=== PATIENT | male | born 1955 | race Caucasian/White ===

== ENCOUNTER 2017-01-29 08:10 | Outpatient (CLI) | payer OTHER | END 2017-01-29 08:11 | disposition home or self-care (01) | DX: R31.9 Hematuria, unspecified (principal) ==

== ENCOUNTER 2017-01-29 08:56 | Outpatient (CLI) | payer OTHER | END 2017-01-29 08:57 | disposition home or self-care (01) | DX: E78.2 Mixed hyperlipidemia (principal); R73.09 Other abnormal glucose; Z12.5 Encounter for screening for malignant neoplasm of prostate; Z72.89 Other problems related to lifestyle ==

== ENCOUNTER 2017-03-05 07:00 | Outpatient (CLI) | payer OTHER ==
--- NOTE | 2017-03-05 11:08 | CARDIAC PROCEDURE NOTE ---
DATE OF SERVICE: 03/05/2017 00:00:00 PROCEDURE: Schuyler protocol treadmill for echocardiographic imaging. INDICATIONS: A 61-year-old male with recent exertional chest heaviness and cardiac risks consisting p rimarily of a former smoking history. PROCEDURE: The patient was exercised in the standard fashion on the Schuyler protocol for less than 6 mi nutes. Early in stage II, he developed the onset of tightness across his anterior chest reproducing h is presenting symptoms. He began to falter a bit on the treadmill and was taken immediately off for i maging. During this time he developed significant ST depressions in the inferolateral leads. It took nearly 20 minutes of recovery before these returned to normal. The discomfort resolved within 5 minut es of stopping the procedure. He had a few PACs. There were no ventricular ectopics. There were no co mplex dysrhythmias. His blood pressure response was normal with his maximum systolic pressure of abou t 160. IMPRESSION: This is a very abnormal treadmill. He did not drop his pressure, but started to stagger a nd had ST segment depressions in large portions of his electrocardiogram. This could represent 3-vess el disease or at least a right dominant lesion. PLAN: The patient has been placed on restricted activities. He is not to do any manual labor or to li ft over 5 pounds. He is to start Plavix 75 mg daily (he is quite INTOLERANT TO ASPIRIN). His baseline pulse is in the upper 50s to low 60s, so he is placed on a low dose metoprolol SR of 25 mg a day. He is also given a prescription for nitroglycerin sublingually with appropriate instructions. If he has to take 3 right in a row, he will be calling 911. These instructions were given to him and his signi ficant other. Arrangements will be made for him to be seen by Cardiology within 1 week. JOB #: [id number] EXT JOB #:[id number]
[2017-03-05 15:41] VITALS: BP 110/72
== END 2017-03-05 07:01 | disposition home or self-care (01) ==
LOC: DI 07:00
PROVIDERS: ATTEND Internal Medicine
DX: R07.9 Chest pain, unspecified (principal); R94.39 Abnormal result of other cardiovascular function study; Z87.891 Personal history of nicotine dependence
CPT/HCPCS: 93350

== ENCOUNTER 2017-04-06 21:42 | Emergency (ER) | payer OTHER ==
[2017-04-06] MEDS ORDERED: HYDROmorphone 1 MG/ML SYRINGE IVP STA ×2 (23:01→23:44)
[2017-04-06] MEDS ORDERED: KETOROLAC 60 MG/2 ML VIAL IVP STA (23:01)
[2017-04-06] MEDS ORDERED: KETOROLAC 30 MG/ML VIAL ONE (23:02)
[2017-04-06] MEDS ORDERED: HYDROmorphone 1 MG/ML SYRINGE ONE ×2 (23:02→23:43)
[2017-04-06 23:18] LABS: BASOPHILS # (AUTO) 0.1 10^3/uL (0.0-0.1); BASOPHILS % (AUTO) 2.2 %; EOSINOPHILS # (AUTO) 0.7 10^3/uL (0.0-0.7); EOSINOPHILS % (AUTO) 10.4 %; HGB - HEMOGLOBIN 10.1 g/dL (14.0-18.0); LYMPHOCYTES # (AUTO) 1.5 10^3/uL (1.5-3.5); LYMPHOCYTES % (AUTO) 23.1 %; MEAN CORPUSCULAR HEMOGLOBIN 31.8 pg (27.0-31.0); MEAN CORPUSCULAR HGB CONC 34.9 g/dL (32.0-36.0); MEAN CORPUSCULAR VOLUME 91.1 fL (80.0-94.0); MEAN PLATELET VOLUME 6.4 fL (7.4-11.4); MONOCYTES # (AUTO) 0.5 10^3/uL (0.0-1.0); NEUTROPHILS # (AUTO) 3.7 10^3/uL (1.5-6.6); NEUTROPHILS % (AUTO) 56.3 %; RED BLOOD COUNT 3.18 10^6/uL (4.70-6.10); RED CELL DISTRIBUTION WIDTH 14.1 % (12.0-15.0); UNCORRECTED WHITE BLOOD COUNT 6.6 x10^3/uL; WHITE BLOOD COUNT 6.6 x10^3/uL (4.8-10.8)
[2017-04-06 23:35] LABS: BILIRUBIN,TOTAL 0.5 mg/dL (0.2-1.0); CALCIUM 8.6 mg/dL (8.5-10.3); CREATININE 0.9 mg/dL (0.6-1.2); MAGNESIUM 2.1 mg/dL (1.7-2.8); POTASSIUM 3.7 mmol/L (3.5-5.0); TOTAL PROTEIN 6.3 g/dL (6.7-8.2)
--- NOTE | 2017-04-06 23:38 | XRAY Preliminary Report ---
Exam: XR Chest 2 View PA/LAT IMPRESSION: Mild bibasilar opacities, probably atelectasis plus or minus small left effusion. [facility] SITE ID: [id number]
--- NOTE | 2017-04-06 23:41 | XRAY Report ---
EXAM: CHEST RADIOGRAPHY EXAM DATE: 04/06/2017 11:30 PM. CLINICAL HISTORY: Right chest pain; post op CABG. COMPARISON: 09/25/2016. TECHNIQUE: 2 views. FINDINGS: Lungs/Pleura: Mild bibasilar probable atelectasis. No gross pneumothorax or large effusion. There cou ld be a small left effusion. Chronic biapical pleural thickening. Mediastinum: Heart and mediastinal contours are unremarkable. Other: Post interval median sternotomy. IMPRESSION: Mild bibasilar opacities, probably atelectasis plus or minus small left effusion. [facility] Referring Provider Line: [phone] SITE ID: [id number]
--- NOTE | 2017-04-07 00:17 | ED Physician Documentation ---
PD HPI CHEST PAIN - Stated complaint Stated Complaint: CHEST PX/POSTOP - Chief complaint Chief Complaint: Cardiac - History obtained from History obtained from: Patient, Family - History of Present Illness Timing - onset: How many weeks ago (had CABG 3 vessel in [place] 04/14/17 with good healing so far. Has been trying to be more active so has increased walkiing. Had walked about 2 miles today and felt okay. When back resting, noted onset of a sharp pain in right chest, feels like "stabbing". Hurts more with moving right arm and with deep breathing. No cough, fever. No redness nor drainage at sternal incision.) Timing - onset during: Light activity (pulling at [employer] chair handle) Timing - details: Abrupt onset, Still present Quality: Aching, Sharp, Pain. No: Pressure, Tightness Location: Right chest Radiation: Back Improved by: Rest Worsened by: Inspiration, Movement (of right arm/shoulder) Associated symptoms: No: Shortness of air, Nausea, Vomiting, Feeling faint / dizzy, Palpitations, Cough Recently seen: Surgery Review of Systems Constitutional: denies: Fever, Chills Nose: denies: Rhinorrhea / runny nose, Congestion Throat: denies: Sore throat Cardiac: denies: Chest pain / pressure, Palpitations, Pedal edema, Calf pain Respiratory: denies: Dyspnea, Cough, Wheezing GI: denies: Abdominal Pain, Nausea, Vomiting, Diarrhea Neurologic: denies: Near syncope PD PAST MEDICAL HISTORY - Past Medical History Cardiovascular: None Respiratory: Other Endocrine/Autoimmune: None GI: GERD, Ulcers, Cholelithiasis : None Psych: None Musculoskeletal: Chronic back pain Derm: None - Past Surgical History Past Surgical History: Yes General: Other HEENT: Tonsil/Adenoidectomy - Present Medications Home Medications: Ambulatory Orders Medication Instructions Recorded Confirmed Amiodarone HCl 200 mg PO DAILY 04/06/17 04/06/17 Aspirin Chewable [[place] 81 mg PO DAILY 04/06/17 04/06/17 Aspirin] Atorvastatin Calcium 40 mg PO DAILY 04/06/17 04/06/17 Docusate Sodium 100 mg PO DAILY 04/06/17 04/06/17 Furosemide 40 mg PO DAILY 04/06/17 04/06/17 Metoprolol Tartrate 25 mg PO DAILY 04/06/17 04/06/17 Pantoprazole Sodium 40 mg PO DAILY 04/06/17 04/06/17 Potassium Chloride [Micro-K] 10 meq PO DAILY 04/06/17 04/06/17 Tamsulosin [Flomax] 0.4 mg PO DAILY 04/06/17 04/06/17 oxyCODONE [Roxicodone] 5 mg PO Q6HR 04/06/17 04/06/17 HYDROmorphone [Dilaudid] 2 mg PO Q4H PRN #20 tablet 04/07/17 Naproxen [Naprosyn] 500 mg PO BID #20 tablet 04/07/17 - Allergies Allergies/Adverse Reactions: Allergies Allergy/AdvReac Type Severity Reaction Status Date / Time No Known Drug Allergies Allergy Verified 03/13/13 11:53 - Social History Does the pt smoke?: Yes Does the pt drink ETOH?: Yes Does the pt have substance abuse?: No - Immunizations Immunizations are current?: No PD ED PE NORMAL - Vitals Vital signs reviewed: Yes - General General: Alert and oriented X 3, Well developed/nourished, Other (appears in pain with movement of arm and deep breathing. Pain localized to right parasternal area about level 6th rib. No rash nor sores seen. No redness nor pimples on sternum. Lungs clear bilaterally. ) - HEENT HEENT: Atraumatic, PERRL, Pharynx benign - Neck Neck: Supple, no meningeal sign, No adenopathy - Cardiac Cardiac: RRR, No murmur - Respiratory Respiratory: Clear bilaterally - Abdomen Abdomen: Normal bowel sounds, Soft, Non distended, No organomegaly, Other (mild tender at prior drain site, but appears healing okay without signs of infection. ) - Male Male : Deferred - Rectal Rectal: Deferred - Derm Derm: Normal color, Warm and dry - Extremities Extremities: No tenderness to palpate, Normal ROM s pain, No edema, No calf tenderness / cord - Neuro Neuro: Alert and oriented X 3, No motor deficit, Normal speech Results - Vitals Vitals: Vital Signs - 24 hr 04/06/17 04/06/17 04/07/17 21:48 23:29 00:38 Temperature 36.7 C Heart Rate 73 68 66 Respiratory 16 16 16 Rate Blood Pressure 134/66 H 121/58 L 114/67 O2 Saturation 95 99 99 Oxygen O2 Source Room air - Labs Labs: Laboratory Tests 04/06/17 04/06/17 23:10 23:10 WBC 6.6 RBC 3.18 L Hgb 10.1 L Hct 29.0 L MCV 91.1 MCH 31.8 H MCHC 34.9 RDW 14.1 Plt Count 260 MPV 6.4 L Neut # 3.7 Lymph # 1.5 [facility] # 0.5 Eos # 0.7 Baso # 0.1 Absolute Nucleated RBC 0.00 Nucleated RBCs 0.0 Sodium 138 Potassium 3.7 Chloride 106 Carbon Dioxide 28 Anion Gap 4.0 L BUN 14 Creatinine 0.9 Estimated GFR (MDRD) 86 L Glucose 159 H Calcium 8.6 Magnesium 2.1 Total Bilirubin 0.5 AST 15 ALT 15 Alkaline Phosphatase 94 Total Protein 6.3 L Albumin 3.2 Globulin 3.1 Albumin/Globulin Ratio 1.0 Lipase 19 L - Rads (name of study) chest Radiology: Prelim report reviewed, EMP read contemporaneously (no PTX. minimal left effusion, none on right. Wires intact without broken wire. Mild bibasilar atelectasis. NO infiltrates. ) PD MEDICAL DECISION MAKING - ED course Complexity details: d/w PMD, d/w account consultant (CT surgery, Dr. Willis - to add NSAID and increase oral meds to Dilaudid short term. Reviewed lab and CXR findings with her. No acute process seen. ) Departure - Departure Disposition: 01 Home, Self Care Clinical Impression: Postsurgical aortocoronary bypass status Chest pain Qualifiers: Chest pain type: unspecified Qualified Code(s): R07.9 - Chest pain, unspecified Condition: Stable Record reviewed to determine appropriate education?: Yes Instructions: ED Chest Pain Pleurisy Follow-Up: Asad Watson MD [Primary Care Provider] - Hilario Romero MD [Provider Admit Priv/Credential] - Prescriptions: HYDROmorphone [Dilaudid] 2 mg PO Q4H PRN #20 tablet PRN Reason: Pain Naproxen [Naprosyn] 500 mg PO BID #20 tablet Comments: Continue current medications. Change pain med from the current oxycodone to oral hydromorphone and see if it works better. Add Naproxen twice daily. Recheck if not improving well over the next 2-3 days, sooner if other symptoms develop. Discharge Date/Time: 04/07/17 00:38
[2017-04-07] MEDS ORDERED: HYDROmorphone 2 MG TABLET PO STA (00:30)
[2017-04-07] MEDS ORDERED: HYDROmorphone 2 MG TABLET ONE (00:31)
[2017-04-07 00:39] VITALS: BP 114/67
== END 2017-04-07 00:38 | disposition home or self-care (01) ==
LOC: ED 21:42
DX: R07.2 Precordial pain (principal); Z95.1 Presence of aortocoronary bypass graft; I25.10 Atherosclerotic heart disease of native coronary artery without angina pectoris; K21.9 Gastro-esophageal reflux disease without esophagitis; Z87.11 Personal history of peptic ulcer disease; Z87.09 Personal history of other diseases of the respiratory system; Z79.82 Long term (current) use of aspirin; F17.200 Nicotine dependence, unspecified, uncomplicated
CPT/HCPCS: 36415; 71020; 71275; 80053; 83690; 83735; 84484; 85025; 85610; 93005; 96374; 96375; 96376; 99283; 99284; 99285; A9270; J1170; Q9967

== ENCOUNTER 2017-04-07 18:21 | Emergency (ER) | payer OTHER ==
[2017-04-07] MEDS ORDERED: MORPHINE 10 MG/ML VIAL IVP ONE (18:40)
--- NOTE | 2017-04-07 18:42 | ED Physician Documentation ---
History of Present Illness - Stated complaint Stated Complaint: R CHEST PAIN - Chief complaint Chief Complaint: General - History obtained from History obtained from: Patient, Family - History of Present Illness Timing: Other (He had a three-vessel coronary bypass by Dr. Watson in [place] in the middle of March. It was complicated by hemothorax necessitating tube thoracostomy. He was discharged though in good condition was improving well until 2 nights ago when he had a sudden pop with severe pain in the right chest while walking. He has been somewhat short of breath and in severe pain ever since which is worse if he moves his arms or takes a deep breath. He was seen here last night and workup was negative. It continues and pain is severe. He denies calf pain or swelling.) Review of Systems Ten Systems: 10 systems reviewed and negative Constitutional: denies: Fever, Chills Throat: denies: Dental pain / toothache, Sore throat Cardiac: reports: Chest pain / pressure. denies: Palpitations, Pedal edema, Calf pain Respiratory: reports: Dyspnea. denies: Cough, Hemoptysis, Wheezing PD PAST MEDICAL HISTORY - Past Medical History Cardiovascular: None Respiratory: Other Endocrine/Autoimmune: None GI: GERD, Ulcers, Cholelithiasis : None Psych: None Musculoskeletal: Chronic back pain Derm: None Other Past Medical History: pneumothorax - Past Surgical History Past Surgical History: Yes General: Other HEENT: Tonsil/Adenoidectomy - Present Medications Home Medications: Ambulatory Orders Medication Instructions Recorded Confirmed Amiodarone HCl 200 mg PO DAILY 04/06/17 04/07/17 Aspirin Chewable [[place] 81 mg PO DAILY 04/06/17 04/07/17 Aspirin] Atorvastatin Calcium 40 mg PO DAILY 04/06/17 04/07/17 Docusate Sodium 100 mg PO DAILY 04/06/17 04/07/17 Metoprolol Tartrate 25 mg PO DAILY 04/06/17 04/07/17 Pantoprazole Sodium 40 mg PO DAILY 04/06/17 04/07/17 Potassium Chloride [Micro-K] 10 meq PO DAILY 04/06/17 04/07/17 Tamsulosin [Flomax] 0.4 mg PO DAILY 04/06/17 04/07/17 oxyCODONE [Roxicodone] 5 mg PO Q6HR 04/06/17 04/07/17 HYDROmorphone [Dilaudid] 2 mg PO Q4H PRN #20 tablet 04/07/17 04/07/17 Naproxen [Naprosyn] 500 mg PO BID #20 tablet 04/07/17 04/07/17 Oxycodone HCl/Acetaminophen 1 each PO Q4H PRN #20 tablet 04/07/17 [Percocet 10-325 mg Tablet] - Allergies Allergies/Adverse Reactions: Allergies Allergy/AdvReac Type Severity Reaction Status Date / Time No Known Drug Allergies Allergy Verified 03/13/13 11:53 - Social History Does the pt smoke?: Yes Does the pt drink ETOH?: Yes Does the pt have substance abuse?: No - Family History Family history: reports: Non contributory - Immunizations Immunizations are current?: No PD ED PE NORMAL - Vitals Vital signs reviewed: Yes - General General: Alert and oriented X 3, Other (Appears uncomfortable) - HEENT HEENT: PERRL, EOMI - Neck Neck: Supple, no meningeal sign, No bony TTP - Cardiac Cardiac: RRR, No murmur - Respiratory Respiratory: Other (Splinting his breaths with mild rhonchi throughout) - Abdomen Abdomen: Soft, Non tender - Back Back: No CVA TTP, No spinal TTP - Derm Derm: Normal color, Warm and dry - Extremities Extremities: No edema, No calf tenderness / cord - Neuro Neuro: Alert and oriented X 3, Normal speech - Psych Psych: Normal mood, Normal affect Results - Vitals Vitals: Vital Signs - 24 hr 04/07/17 04/07/17 18:24 19:51 Temperature 36.0 C L Heart Rate 69 66 Respiratory 18 18 Rate Blood Pressure 121/74 114/69 O2 Saturation 96 96 Oxygen O2 Source Room air - EKG (time done) 1844 Rate: Rate (enter#) (68) Rhythm: NSR [place]: Normal Intervals: Normal [place] QRS: Normal Ischemia: Normal ST segments Computer interpretation: Agree with computer - Labs Labs: Laboratory Tests 04/07/17 04/07/17 04/07/17 18:43 18:43 18:43 WBC 6.8 RBC 3.57 L Hgb 11.0 L Hct 33.2 L MCV 92.8 MCH 30.8 MCHC 33.2 RDW 14.2 Plt Count 297 MPV 6.7 L Neut # 3.3 Lymph # 2.0 [place] # 0.6 Eos # 0.8 H Baso # 0.1 Absolute Nucleated RBC 0.01 Nucleated RBCs 0.1 PT 14.8 H INR 1.3 H Sodium 138 Potassium 4.2 Chloride 103 Carbon Dioxide 28 Anion Gap 7.0 BUN 16 Creatinine 1.1 Estimated GFR (MDRD) 68 L Glucose 113 H Calcium 8.8 Total Bilirubin 0.6 AST 13 ALT 14 Alkaline Phosphatase 109 Troponin I Total Protein 6.9 Albumin 3.5 Globulin 3.4 Albumin/Globulin Ratio 1.0 Lipase 18 L 04/07/17 18:43 WBC RBC Hgb Hct MCV MCH MCHC RDW Plt Count MPV Neut # Lymph # [place] # Eos # Baso # Absolute Nucleated RBC Nucleated RBCs PT INR Sodium Potassium Chloride Carbon Dioxide Anion Gap BUN Creatinine Estimated GFR (MDRD) Glucose Calcium Total Bilirubin AST ALT Alkaline Phosphatase Troponin I < 0.04 Total Protein Albumin Globulin Albumin/Globulin Ratio Lipase - Rads (name of study) Ct Angio chest Radiology: EMP read contemporaneously (No PE, recent sternomoty small restrosternal hematoma with gas. Emphysems and 7mm RML pulm nodule.) PD MEDICAL DECISION MAKING - ED course ED course: 61-year-old gentleman presents with pleuritic chest pain starting a few days after mediastinal drain removal and a few weeks after coronary bypass. Pain is pretty severe. CT was pursued to assess for PE which was negative. Case discussed with his cardiothoracic surgeon, Dr. Watson who felt that the mediastinal gas was probably appropriate at this time course given there is no evidence of infection, his sternotomy incision looks fine. Patient was reassured by this. Discussed pulmonary nodule and need for follow-up for same. Departure - Departure Disposition: 01 Home, Self Care Clinical Impression: Postsurgical aortocoronary bypass status Chest pain Qualifiers: Chest pain type: precordial pain Qualified Code(s): R07.2 - Precordial pain Condition: Good Record reviewed to determine appropriate education?: Yes Instructions: ED Chest Pain Pleurisy Prescriptions: Oxycodone HCl/Acetaminophen [Percocet 10-325 mg Tablet] 1 each PO Q4H PRN #20 tablet PRN Reason: Pain Comments: You do have a 7 mm right middle lobe pulmonary nodule for which you will need a follow-up chest CT in 3-6 months to make sure it is not growing. Discuss this with Dr Romero See Dr Watson in 3-5 days if not fracture.
[2017-04-07 18:47] LABS: BASOPHILS # (AUTO) 0.1 10^3/uL (0.0-0.1); BASOPHILS % (AUTO) 2.1 %; EOSINOPHILS # (AUTO) 0.8 10^3/uL (0.0-0.7); EOSINOPHILS % (AUTO) 11.9 %; HCT - HEMATOCRIT 33.2 % (42.0-52.0); LYMPHOCYTES % (AUTO) 28.6 %; MEAN CORPUSCULAR HEMOGLOBIN 30.8 pg (27.0-31.0); MEAN CORPUSCULAR HGB CONC 33.2 g/dL (32.0-36.0); MEAN CORPUSCULAR VOLUME 92.8 fL (80.0-94.0); MEAN PLATELET VOLUME 6.7 fL (7.4-11.4); MONOCYTES # (AUTO) 0.6 10^3/uL (0.0-1.0); NEUTROPHILS # (AUTO) 3.3 10^3/uL (1.5-6.6); NEUTROPHILS % (AUTO) 48.4 %; NUCLEATED RED BLOOD CELLS AUTO 0.1 /100WBC; RED BLOOD COUNT 3.57 10^6/uL (4.70-6.10); RED CELL DISTRIBUTION WIDTH 14.2 % (12.0-15.0); UNCORRECTED WHITE BLOOD COUNT 6.8 x10^3/uL; WHITE BLOOD COUNT 6.8 x10^3/uL (4.8-10.8)
[2017-04-07] MEDS ORDERED: MORPHINE 10 MG/ML VIAL ONE (18:49)
[2017-04-07 18:54] LABS: INR 1.3 (0.8-1.2); PT - PROTHROMBIN TIME 14.8 secs (9.9-12.6)
[2017-04-07 18:59] LABS: BILIRUBIN,TOTAL 0.6 mg/dL (0.2-1.0); CALCIUM 8.8 mg/dL (8.5-10.3); CREATININE 1.1 mg/dL (0.6-1.2); POTASSIUM 4.2 mmol/L (3.5-5.0); TOTAL PROTEIN 6.9 g/dL (6.7-8.2)
[2017-04-07] MEDS ORDERED: IOPAMIDOL-300 100 ML VIAL IVP ONE (19:34)
[2017-04-07] MEDS ORDERED: MORPHINE 2 MG/ML SYRINGE IVP STA (19:42)
[2017-04-07] MEDS ORDERED: MORPHINE 2 MG/ML SYRINGE ONE (19:42)
--- NOTE | 2017-04-07 19:50 | CT Preliminary Report ---
Exam: CT Chest Angio (PE) IMPRESSION: No evidence of pulmonary embolus. Recent sternotomy, with a small retrosternal hematoma with residual gas. Emphysema. 7 mm right middle lobe pulmonary nodule. Follow-up chest CT in 3-6 months is recommended f or this high risk patient. Left effusion and basilar atelectasis. [facility] SITE ID: [id number]
--- NOTE | 2017-04-07 19:52 | CT Report ---
EXAM: CT ANGIOGRAM CHEST EXAM DATE: 04/07/2017 07:35 PM. CLINICAL HISTORY: Postsurgical chest pain. Open heart surgery 03/15/2017. COMPARISON: Chest x-ray 04/06/2017. TECHNIQUE: Routine helical imaging was performed through the chest in the pulmonary arterial phase. I V Contrast: 100 mL Isovue 300. Reconstructions: Coronal and sagittal 3-D MIP reconstructions.Sagittal and coronal. In accordance with CT protocol optimization, one or more of the following dose reduction techniques w ere utilized for this exam: automated exposure control, adjustment of mA and/or KV based on patient s ize, or use of iterative reconstructive technique. FINDINGS: Pulmonary Arteries: Diagnostic quality: Adequate through the segmental arteries. No evidence for acute or chronic pulmona ry emboli. RV/LV is within normal limits. There is no interventricular septal bowing. There is no reflux of cont rast material in the IVC. Lungs/Pleura: Emphysema. Left effusion with basilar atelectasis. A 7 mm nodule in the lateral right m iddle lobe. (See axial image 108). Mediastinum: Postoperative changes of recent cardiac surgery, with a small anterior mediastinal hemat tomi, with residual gas. No mediastinal adenopathy. Thoracic Aorta: Unremarkable. Upper Abdomen: Cholelithiasis. Other: None. IMPRESSION: No evidence of pulmonary embolus. Recent sternotomy, with a small retrosternal hematoma with residual gas. Emphysema. 7 mm right middle lobe pulmonary nodule. Follow-up chest CT in 3-6 months is recommended f or this high risk patient. Left effusion and basilar atelectasis. [facility] Referring Provider Line: [phone] SITE ID: [id number]
[2017-04-07] MEDS ORDERED: KETOROLAC 60 MG/2 ML VIAL IVP STA (20:18)
[2017-04-07] MEDS ORDERED: KETOROLAC 30 MG/ML VIAL ONE (20:23)
[2017-04-07 20:34] VITALS: BP 111/72
== END 2017-04-07 20:34 | disposition home or self-care (01) ==
LOC: ED 18:21
DX: R07.2 Precordial pain (principal); Z95.1 Presence of aortocoronary bypass graft; I25.10 Atherosclerotic heart disease of native coronary artery without angina pectoris; K21.9 Gastro-esophageal reflux disease without esophagitis; Z87.11 Personal history of peptic ulcer disease; Z87.09 Personal history of other diseases of the respiratory system; Z79.82 Long term (current) use of aspirin; F17.200 Nicotine dependence, unspecified, uncomplicated
CPT/HCPCS: 36415; 71275; 80053; 83690; 84484; 85025; 85610; 93005; 99283

== ENCOUNTER 2017-07-07 06:51 | Outpatient (CLI) | payer OTHER ==
[2017-07-07] MEDS ORDERED: IOPAMIDOL-300 100 ML VIAL ONE (07:18)
[2017-07-07 07:24] LABS: CREATININE 0.9 mg/dL (0.6-1.2)
[2017-07-07] MEDS ORDERED: IOPAMIDOL-300 100 ML VIAL IVP ONE ×2 (07:44)
--- NOTE | 2017-07-07 15:48 | CT Report ---
EXAM: CT CHEST WITHOUT AND WITH CONTRAST EXAM DATE: 07/07/2017 07:52 AM. CLINICAL HISTORY: Reassessment of 61-year-old male with history of cardiac disease with right pulmona ry nodule. COMPARISONS: Similar prior study of 04/07/2017 two-view chest of 04/06/2017 and previous.. TECHNIQUE: Routine helical CT imaging was performed through the chest without and with contrast. IV c ontrast: 80 mL of Isovue-300. Reconstructions: Coronal and sagittal MPR and 3-D MIP. In accordance with CT protocol optimization, one or more of the following dose reduction techniques w ere utilized for this exam: automated exposure control, adjustment of mA and/or KV based on patient s ize, or use of iterative reconstructive technique. FINDINGS: Lungs/Pleura: Stable 6-7 mm right middle lobe pulmonary nodule, noncalcified, on scan 4-45. No additi onal pulmonary nodules or masses. Infiltrates/edema both lung bases seen previously resolved. No new infiltrates or effusions. No pneumothorax. Mild fibrolinear scarring left lung base. Mediastinum: Normal. No adenopathy or masses. The heart and great vessels are normal. No pulmonary va scular congestion. Postsurgical changes of CABG, as previously. Bones: Previous median sternotomy, as previously. Intact median sternotomy wires. Visualized Abdomen: Cholelithiasis, as previously. No gallbladder wall thickening or dilated bile yvette ts. Remainder of visualized upper abdomen unremarkable. Other: None. IMPRESSION: Interval resolution of bibasilar infiltrates/edema and pleural effusions since prior stud y. No acute cardiopulmonary process currently. Stable 67 millimeter round noncalcified nodule right middle lobe. No additional pulmonary nodules or masses. Noncontrast chest CT neck recommended for follow-up in 1824 months per [employer] of Thoraci c Radiology Guidelines. Cholelithiasis, as noted previously. No gallbladder wall thickening or dilated bile ducts. [facility] Referring Provider Line: [phone] SITE ID: [id number]
== END 2017-07-07 06:52 | disposition home or self-care (01) ==
LOC: LAB 06:51
PROVIDERS: ATTEND Internal Medicine
DX: R91.1 Solitary pulmonary nodule (principal)
CPT/HCPCS: 36415; 71270; 82565; Q9967

== ENCOUNTER 2017-08-31 11:33 | Outpatient (CLI) | payer OTHER ==
--- NOTE | 2017-08-31 14:12 | XRAY Report ---
LEFT RIBS: 08/31/2017 CLINICAL INDICATION: Pain. FINDINGS: Frontal and oblique views of the left ribs were obtained. No displaced rib fracture is jaleesa ntified. Minimal basilar atelectasis is seen. No pneumothorax. Postoperative changes of cardiac surge ry are present. IMPRESSION: NO EVIDENCE OF AN ACUTE DISPLACED LEFT RIB FRACTURE. POSTOPERATIVE CHANGES OF CARDIAC DYSON RGERY. JOB #: [id number] EXT JOB #:[id number]
== END 2017-08-31 11:34 | disposition home or self-care (01) ==
LOC: DI 11:33
PROVIDERS: ATTEND Internal Medicine
DX: R07.81 Pleurodynia (principal)

== ENCOUNTER 2017-12-26 09:38 | Outpatient (CLI) | payer OTHER ==
--- NOTE | 2017-12-26 12:41 | XRAY Report ---
THREE VIEW LEFT MIDDLE FINGER: 12/26/2017 CLINICAL INDICATION: Pain. FINDINGS: AP, lateral, oblique views of the left middle finger demonstrate no evidence of fracture or dislocation. The joint spaces are preserved. No foreign body is seen in the soft tissues. IMPRESSION: NO EVIDENCE OF FRACTURE. TD: 12/26/2017 12:40
== END 2017-12-26 09:39 | disposition home or self-care (01) ==
LOC: DI 09:38
PROVIDERS: ATTEND Nurse Practitioner Primary Care
DX: M79.645 Pain in left finger(s) (principal)
CPT/HCPCS: 73140

== ENCOUNTER 2018-01-08 10:49 | Outpatient (CLI) | payer OTHER ==
--- NOTE | 2018-01-08 11:56 | CT Report ---
CT BRAIN WITHOUT CONTRAST: 01/08/2018 CLINICAL INDICATION: Dizziness, vertigo, sudden onset nausea. TECHNIQUE: Axial CT images of the brain were obtained without intravenous contrast. COMPARISON: No previous CT is available for comparison. FINDINGS: The ventricles and sulci are normal in size, shape and configuration. The basilar cisterns are patent. There is no evidence of hemorrhage, mass effect, or midline shift. The visualized orbital contents and paranasal sinuses are unremarkable. The mastoid air cells are normally pneumatized. IMPRESSION: NORMAL CT OF THE BRAIN WITHOUT CONTRAST. CT DOSE REDUCTION STATEMENT In accordance with CT protocol optimization, one or more of the following dose reduction techniques were utilized for this exam: automated exposure control, adjustment of mA and/or KV based on patient size, or use of iterative reconstructive technique. TD: 01/08/2018 11:54
== END 2018-01-08 10:50 | disposition home or self-care (01) ==
LOC: LAB 10:49 → DI 10:50
PROVIDERS: ATTEND Physician Assistant Medical
DX: R42 Dizziness and giddiness (principal); R51 Headache
CPT/HCPCS: 70450

== ENCOUNTER 2018-08-01 16:21 | Emergency (ER) | payer OTHER ==
[2018-08-01] MEDS ORDERED: SODIUM CHLORIDE 0.9% 1,000 ML IV ONE (16:49)
[2018-08-01] MEDS ORDERED: HYDROmorphone 1 MG/ML CARPUJECT IVP STA ×2 (16:49→18:24)
[2018-08-01] MEDS ORDERED: ONDANSETRON 4 MG/2 ML VIAL IVP STA (16:49)
--- NOTE | 2018-08-01 16:52 | ED Physician Documentation ---
PD HPI ABD PAIN - Stated complaint Stated Complaint: Abdominal pain - Chief complaint Chief Complaint: Abd Pain - History obtained from History obtained from: Patient, Family - History of Present Illness Timing - onset: How many hours ago (3) Timing - duration: Hours (3) Timing - details: Abrupt onset Pain level max: 10 Pain level now: 10 Quality: Aching, Pain Location: RUQ Radiation: Other (non-radiating.) Improved by: Other (nothing) Worsened by: Eating (started after eating grilled cheese today.) Associated symptoms: Nausea, Vomiting. No: Fever, Hematemesis, Diarrhea, Constipation, Melena, Hematochezia, Dysuria, Hematuria Similar symptoms before: Diagnosis (gallstones) Recently seen: Other (had a nuclear stress test today in [place].) Review of Systems Ten Systems: 10 systems reviewed and negative Constitutional: denies: Fever, Chills Ears: denies: Ear pain Nose: denies: Rhinorrhea / runny nose, Congestion Throat: denies: Sore throat Cardiac: denies: Palpitations Respiratory: denies: Cough, Wheezing GI: reports: Abdominal Pain, Nausea, Vomiting. denies: Diarrhea, Hematemesis, Bloody / black stool : denies: Dysuria Skin: denies: Rash Musculoskeletal: denies: Neck pain, Back pain Neurologic: denies: Headache PD PAST MEDICAL HISTORY - Past Medical History Cardiovascular: None, Coronary artery disease Respiratory: Other Endocrine/Autoimmune: None GI: GERD, Ulcers, Cholelithiasis : None Psych: None Musculoskeletal: Chronic back pain Derm: None - Past Surgical History Past Surgical History: Yes General: Other Cardiovascular: CABG, Coronary stent HEENT: Tonsil/Adenoidectomy - Present Medications Home Medications: Ambulatory Orders Medication Instructions Recorded Confirmed Aspirin Chewable [[place] 81 mg PO DAILY 04/06/17 04/07/17 Aspirin] Atorvastatin Calcium 40 mg PO DAILY 04/06/17 04/07/17 Metoprolol Tartrate 25 mg PO DAILY 04/06/17 04/07/17 Pantoprazole Sodium 40 mg PO DAILY 04/06/17 04/07/17 Clopidogrel Bisulfate [Clopidogrel] 08/01/18 Nitroglycerin [Nitro-Time] 2.5 mg PO 08/01/18 08/01/18 - Allergies Allergies/Adverse Reactions: Allergies Allergy/AdvReac Type Severity Reaction Status Date / Time No Known Drug Allergies Allergy Verified 08/01/18 16:28 - Social History Does the pt smoke?: Yes Smoking Status: Current every day smoker Does the pt drink ETOH?: Yes Does the pt have substance abuse?: No - Immunizations Immunizations are current?: No PD ED PE NORMAL - Vitals Vital signs reviewed: Yes - General General: Alert and oriented X 3, Other (appears in pain) - HEENT HEENT: Moist mucous membranes - Neck Neck: Supple, no meningeal sign - Cardiac Cardiac: RRR, Strong equal pulses - Respiratory Respiratory: No respiratory distress, Clear bilaterally - Abdomen Abdomen: Soft, Non distended, Other (Tender palpation right upper quadrant. Positive Posey sign) - Back Back: No spinal TTP - Derm Derm: Warm and dry - Neuro Neuro: Alert and oriented X 3 Results - Vitals Vitals: Vital Signs - 24 hr 08/01/18 08/01/18 08/01/18 16:25 18:15 18:55 Temperature 36.6 C 36.5 C Heart Rate 65 66 71 Respiratory 20 20 16 Rate Blood Pressure 156/87 H 152/74 H 141/77 H O2 Saturation 99 98 99 Oxygen O2 Source Room air - Labs Labs: Laboratory Tests 08/01/18 08/01/18 08/01/18 16:42 16:42 18:21 WBC 4.4 L RBC 4.62 L Hgb 14.4 Hct 41.5 L MCV 89.8 MCH 31.1 H MCHC 34.6 RDW 14.3 Plt Count 181 MPV 7.0 L Neut # (Auto) 2.4 Lymph # (Auto) 1.4 L [place] # (Auto) 0.4 Eos # (Auto) 0.2 Baso # (Auto) 0.1 Absolute Nucleated RBC 0.00 Nucleated RBC % 0.0 Sodium 136 Potassium 3.7 Chloride 103 Carbon Dioxide 24 Anion Gap 9.0 BUN 16 Creatinine 0.9 Estimated GFR (MDRD) 86 L Glucose 120 H Calcium 9.1 Total Bilirubin 1.1 H AST 17 ALT 13 Alkaline Phosphatase 102 Total Protein 7.8 Albumin 4.3 Globulin 3.5 Albumin/Globulin Ratio 1.2 Lipase 24 Urine Color YELLOW Urine Clarity CLEAR Urine pH 8.0 H Ur Specific [place] 1.015 Urine Protein NEGATIVE Urine Glucose (UA) NEGATIVE Urine Ketones TRACE Urine Occult Blood NEGATIVE Urine Nitrite NEGATIVE Urine Bilirubin NEGATIVE Urine Urobilinogen 1 (NORMAL) Ur Leukocyte Esterase NEGATIVE Ur Microscopic Review NOT INDICATED Urine Culture Comments NOT INDICATED - Rads (name of study) RUQ US Radiology: Prelim report reviewed, EMP read contemporaneously, See rad report (Positive sonographic Posey's sign and gallstones concerning for acute cholecystitis. Correlate clinically. 2. No liver mass or intrahepatic bile duct dilation. 3. Normal common bile duct. Limited visualization of the pancreas. 4. Study limited by bowel gas. ) PD MEDICAL DECISION MAKING - ED course Complexity details: reviewed results, re-evaluated patient, considered differential, d/w patient, d/w family ED course: Patient is a 62-year-old male who presents to the emergency department with what appears to be a large gallstone in the gallbladder neck. Normal white blood cell count. No wall thickening or pericholecystic fluid. Upon return to the emergency department from ultrasound, his pain suddenly fully resolved. Likely that the gallstone dislodged. I discussed with the patient and his that I could still call surgery to have the gallbladder urgently removed, but they declined this and would rather follow-up as outpatients. He will follow a low- fat diet. Will return for any return of pain or fevers or vomiting. Patient counseled regarding signs and symptoms for which I believe and urgent re- evaluation would be necessary. Patient with good understanding of and agreement to plan and is comfortable going home at this time This document was made in part using voice recognition software. While efforts are made to proofread this document, sound alike and grammatical errors may occur. Abdomen was soft, nontender on repeat examination with a negative Posey sign Departure - Departure Disposition: 01 Home, Self Care Clinical Impression: Biliary colic Condition: Good Instructions: ED Gallstone W Biliary Colic Follow-Up: Hilario Romero MD [Primary Care Provider] - Within 3 Days Papo Ramos MD [Provider Admit Priv/Credential] - Comments: This appears to be related to your gallbladder. It appears that when you returned to the emergency department, the stone in the gallbladder neck moved and relieved the pressure that had built up. Follow a low-fat diet. Return if you worsen, especially for recurrent pain or fevers. You should also speak with your doctor and the surgeon about having your gallbladder removed. Discharge Date/Time: 08/01/18 19:01
[2018-08-01 16:58] LABS: HGB - HEMOGLOBIN 14.4 g/dL (14.0-18.0); MEAN CORPUSCULAR HEMOGLOBIN 31.1 pg (27.0-31.0); MEAN CORPUSCULAR HGB CONC 34.6 g/dL (32.0-36.0); MEAN CORPUSCULAR VOLUME 89.8 fL (80.0-94.0); RED BLOOD COUNT 4.62 10^6/uL (4.70-6.10); RED CELL DISTRIBUTION WIDTH 14.3 % (12.0-15.0); WHITE BLOOD COUNT 4.4 x10^3/uL (4.8-10.8)
[2018-08-01 16:59] LABS: BASOPHILS # (AUTO) 0.1 10^3/uL (0.0-0.1); BASOPHILS % (AUTO) 2.1 %; EOSINOPHILS # (AUTO) 0.2 10^3/uL (0.0-0.7); LYMPHOCYTES # (AUTO) 1.4 10^3/uL (1.5-3.5); LYMPHOCYTES % (AUTO) 30.6 %; MONOCYTES # (AUTO) 0.4 10^3/uL (0.0-1.0); MONOCYTES % (AUTO) 8.9 %; NEUTROPHILS # (AUTO) 2.4 10^3/uL (1.5-6.6); NEUTROPHILS % (AUTO) 53.4 %; PLT - PLATELET COUNT 181 10^3/uL (130-450)
[2018-08-01 17:12] LABS: ALBUMIN 4.3 g/dL (3.2-5.5); ALBUMIN/GLOBULIN RATIO 1.2 (1.0-2.2); BILIRUBIN,TOTAL 1.1 mg/dL (0.2-1.0); CALCIUM 9.1 mg/dL (8.5-10.3); CREATININE 0.9 mg/dL (0.6-1.2); TOTAL PROTEIN 7.8 g/dL (6.7-8.2)
[2018-08-01 18:32] LABS: BILIRUBIN,URINE NEGATIVE (NEGATIVE); GLUCOSE, URINE (UA) NEGATIVE (NEGATIVE); KETONES,URINE (UA) TRACE mg/dL (NEGATIVE); LEUKOCYTE ESTERASE, URINE NEGATIVE (NEGATIVE); NITRITE,URINE NEGATIVE (NEGATIVE); OCCULT BLOOD,URINE NEGATIVE (NEGATIVE); PROTEIN,URINE NEGATIVE (NEGATIVE); UROBILINOGEN,URINE 1 (NORMAL) E.U./dL (NORMAL)
--- NOTE | 2018-08-01 18:35 | Ultrasound Report ---
Reason: RUQ abd pain Procedure Date: 08/01/2018 Accession Number: [id number] / [id number] Procedure: US - Abdomen Limited CPT Code: FULL RESULT: EXAM: ABDOMEN ULTRASOUND LIMITED, RUQ EXAM DATE: 08/01/2018 06:06 PM. CLINICAL HISTORY: RUQ abd pain. COMPARISON: ABDOMEN LIMITED 09/25/2016 7:17 PM. TECHNIQUE: Real-time scanning was performed with static images obtained. FINDINGS: Liver: Normal in size and echotexture. 14.2 cm. Main portal vein flow: Hepatopetal. Gallbladder: Gallstones with a positive sonographic Posey's sign. Gallstone is located at the neck of the gallbladder without significant movement with change of position. No pericholecystic fluid. Biliary System: CBD measures 4.6 mm. No intrahepatic or extrahepatic ductal dilatation. Pancreas: Not well seen due to bowel gas. Right kidney: 12.5 cm. No hydronephrosis. Abdominal aorta and IVC: Normal. Other: Significant limitation secondary to bowel gas. IMPRESSION: 1. Positive sonographic Posey's sign and gallstones concerning for acute cholecystitis. Correlate clinically. 2. No liver mass or intrahepatic bile duct dilation. 3. Normal common bile duct. Limited visualization of the pancreas. 4. Study limited by bowel gas. [facility]
[2018-08-01 18:42] LABS: CLARITY,URINE CLEAR (CLEAR)
[2018-08-01 18:56] VITALS: BP 141/77
== END 2018-08-01 19:01 | disposition home or self-care (01) ==
LOC: ED 16:21
DX: K80.50 Calculus of bile duct without cholangitis or cholecystitis without obstruction (principal); I25.10 Atherosclerotic heart disease of native coronary artery without angina pectoris; F17.200 Nicotine dependence, unspecified, uncomplicated; Z95.1 Presence of aortocoronary bypass graft; Z95.5 Presence of coronary angioplasty implant and graft; Z79.82 Long term (current) use of aspirin
CPT/HCPCS: 36415; 76705; 80053; 81003; 83690; 85025; 93005; 96361; 96374; 96376; 99283; 99284; J1170; 81001; 87086

== ENCOUNTER 2018-08-31 08:53 | Outpatient (CLI) | payer OTHER ==
[2018-08-31 09:47] LABS: ALBUMIN 4.3 g/dL (3.2-5.5); ALBUMIN/GLOBULIN RATIO 1.3 (1.0-2.2); ALKALINE PHOSPHATASE 119 IU/L (42-121); ALT ALANINE AMINOTRANSFERASE 18 IU/L (10-60); AST ASPARTATE AMINOTRANSFERASE 16 IU/L (10-42); BUN - BLOOD UREA NITROGEN 16 mg/dL (6-20); CALCIUM 9.2 mg/dL (8.5-10.3); CARBON DIOXIDE - CO2 27 mmol/L (21-32); CHLORIDE 104 mmol/L (101-111); CHOL/HDL RATIO 3.9 (<5.0); CHOLESTEROL 128 mg/dL; CREATININE 0.9 mg/dL (0.6-1.2); GFR - MDRD 86 (>89); GLUCOSE 138 mg/dL (70-100); HDL CHOLESTEROL 33 mg/dL; LDL CHOLESTEROL,CALCULATED 72 mg/dL; LDL/HDL RATIO 2.2 (<3.6); SODIUM 137 mmol/L (135-145); TOTAL PROTEIN 7.7 g/dL (6.7-8.2); VLDL CHOLESTEROL 23 mg/dL
[2018-08-31 09:54] LABS: HB2 TOTAL 16.1 g/dL; HEMOGLOBIN A1C 0.65 g/dL; HEMOGLOBIN A1C % 5.8 % (4.6-6.2)
== END 2018-08-31 08:54 | disposition home or self-care (01) ==
LOC: LAB 08:53
PROVIDERS: ATTEND Internal Medicine
DX: R73.9 Hyperglycemia, unspecified (principal); I25.10 Atherosclerotic heart disease of native coronary artery without angina pectoris; E78.5 Hyperlipidemia, unspecified
CPT/HCPCS: 36415; 80053; 80061; 83036; 83721

== ENCOUNTER 2019-10-11 08:29 | Outpatient (CLI) | payer BC ==
[2019-10-11 09:12] LABS: BASOPHILS # (AUTO) 0.1 10^3/uL (0.0-0.1); EOSINOPHILS # (AUTO) 0.2 10^3/uL (0.0-0.7); EOSINOPHILS % (AUTO) 5.8 %; HGB - HEMOGLOBIN 14.5 g/dL (14.0-18.0); LYMPHOCYTES % (AUTO) 24.9 %; MEAN CORPUSCULAR HEMOGLOBIN 32.4 pg (27.0-31.0); MEAN CORPUSCULAR HGB CONC 34.3 g/dL (32.0-36.0); MEAN CORPUSCULAR VOLUME 94.4 fL (80.0-94.0); MEAN PLATELET VOLUME 9.1 fL (7.4-11.4); MONOCYTES # (AUTO) 0.4 10^3/uL (0.0-1.0); MONOCYTES % (AUTO) 10.1 %; NEUTROPHILS # (AUTO) 2.3 10^3/uL (1.5-6.6); NEUTROPHILS % (AUTO) 56.9 %; PLT - PLATELET COUNT 155 10^3/uL (130-450); RED BLOOD COUNT 4.48 10^6/uL (4.70-6.10); RED CELL DISTRIBUTION WIDTH 12.9 % (12.0-15.0)
[2019-10-11 09:52] LABS: ALBUMIN/GLOBULIN RATIO 1.3 (1.0-2.2); ALKALINE PHOSPHATASE 87 IU/L (42-121); ALT ALANINE AMINOTRANSFERASE 17 IU/L (10-60); AST ASPARTATE AMINOTRANSFERASE 17 IU/L (10-42); BILIRUBIN,TOTAL 0.6 mg/dL (0.2-1.0); BUN - BLOOD UREA NITROGEN 18 mg/dL (6-20); CALCIUM 8.8 mg/dL (8.5-10.3); CARBON DIOXIDE - CO2 25 mmol/L (21-32); CHLORIDE 107 mmol/L (101-111); CHOL/HDL RATIO 2.8 (<5.0); CHOLESTEROL 128 mg/dL; GFR - MDRD 75 (>89); GLUCOSE 138 mg/dL (70-100); HDL CHOLESTEROL 46 mg/dL; LDL CHOLESTEROL,CALCULATED 70 mg/dL; LDL/HDL RATIO 1.5 (<3.6); SODIUM 139 mmol/L (135-145); TOTAL PROTEIN 7.2 g/dL (6.7-8.2); VLDL CHOLESTEROL 12 mg/dL
[2019-10-13 13:59] LABS: HB2 TOTAL 14.5 g/dL; HEMOGLOBIN A1C 0.61 g/dL
== END 2019-10-11 08:30 | disposition home or self-care (01) ==
LOC: LAB 08:29
PROVIDERS: ATTEND Physician Assistant
DX: I25.10 Atherosclerotic heart disease of native coronary artery without angina pectoris (principal); R73.9 Hyperglycemia, unspecified
CPT/HCPCS: 36415; 80053; 80061; 83036; 83721; 85025

== ENCOUNTER 2019-10-30 01:50 | Emergency (ER) | payer BC ==
[2019-10-30] MEDS ORDERED: ONDANSETRON 4 MG/2 ML VIAL IVP STA (01:59)
[2019-10-30] MEDS ORDERED: MORPHINE 10 MG/ML VIAL IVP STA (01:59)
[2019-10-30] MEDS ORDERED: SODIUM CHLORIDE 0.9% 1,000 ML IV STA (01:59)
[2019-10-30] MEDS ORDERED: SODIUM CHLORIDE 0.9% 1,000 ML IV ONE (02:00)
--- NOTE | 2019-10-30 02:02 | ED Physician Documentation ---
History of Present Illness - Stated complaint Stated Complaint: ABD PAIN/VOMITING - Chief complaint Chief Complaint: Abd Pain - History obtained from History obtained from: Patient ( Patient presented emergency room with severe abdominal pain started at 10:00 this afternoon. There has been numerous nausea vomiting episode. No hematuria no dysuria. No previous abdominal surgery. In the emergency room, patient is very uncomfortable. Restless. No fever no chills. No recent long distance travel lately. He drink almost daily, today at about 5 PM he had a shot of martini. No. History of pancreatitis.), Family - History of Present Illness Timing: Today Pain level max: 10 Pain level now: 10 Review of Systems Ten Systems: 10 systems reviewed and negative Constitutional: reports: Reviewed and negative Eyes: reports: Reviewed and negative Ears: reports: Reviewed and negative Nose: reports: Reviewed and negative Throat: reports: Reviewed and negative Cardiac: reports: Reviewed and negative Respiratory: reports: Reviewed and negative GI: reports: Abdominal Pain, Nausea, Vomiting : reports: Reviewed and negative Skin: reports: Reviewed and negative Musculoskeletal: reports: Reviewed and negative Neurologic: reports: Reviewed and negative Psychiatric: reports: Reviewed and negative Endocrine: reports: Reviewed and negative Immunocompromised: reports: Reviewed and negative PD PAST MEDICAL HISTORY - Past Medical History Cardiovascular: None, Coronary artery disease Respiratory: Other Endocrine/Autoimmune: None GI: GERD, Ulcers, Cholelithiasis : None Psych: None Musculoskeletal: Chronic back pain Derm: None - Past Surgical History Past Surgical History: Yes General: Other Cardiovascular: CABG, Coronary stent HEENT: Tonsil/Adenoidectomy - Present Medications Home Medications: Ambulatory Orders Medication Instructions Recorded Confirmed Aspirin Chewable [[facility] 81 mg PO DAILY 04/06/17 04/07/17 Aspirin] Atorvastatin Calcium 40 mg PO DAILY 04/06/17 04/07/17 Metoprolol Tartrate 25 mg PO DAILY 04/06/17 04/07/17 Pantoprazole Sodium 40 mg PO DAILY 04/06/17 04/07/17 Clopidogrel Bisulfate [Clopidogrel] 08/01/18 Nitroglycerin [Nitro-Time] 2.5 mg PO 08/01/18 08/01/18 Ondansetron Odt [Zofran] 4 mg TL Q6H PRN #10 tablet 10/30/19 Pantoprazole Sodium [Protonix] 40 mg PO DAILY #30 granpkt. 10/30/19 traMADol [Ultram] 50 mg PO Q4-6H #15 tablet 10/30/19 - Allergies Allergies/Adverse Reactions: Allergies Allergy/AdvReac Type Severity Reaction Status Date / Time No Known Drug Allergies Allergy Verified 10/30/19 02:00 - Social History Does the pt smoke?: Yes Smoking Status: Current every day smoker Does the pt drink ETOH?: Yes Does the pt have substance abuse?: No - Immunizations Immunizations are current?: No PD ED PE NORMAL - Vitals Vital signs reviewed: Yes - General General: Alert and oriented X 3, Other - HEENT HEENT: PERRL - Neck Neck: Supple, no meningeal sign - Cardiac Cardiac: RRR, No murmur - Respiratory Respiratory: Clear bilaterally - Abdomen Abdomen: Normal bowel sounds, Soft, Non distended, No organomegaly, Other (Generalized abdominal discomfort on deep palpation, no tenderness over McBurney's point, no organomegaly,) - Derm Derm: Warm and dry - Extremities Extremities: No deformity - Neuro Neuro: Alert and oriented X 3 - Psych Psych: Normal mood, Normal affect Results - Vitals Vitals: Vital Signs - 24 hr 10/30/19 10/30/19 01:56 03:01 Temperature 36.1 C L Heart Rate 67 72 Respiratory 20 16 Rate Blood Pressure 153/84 H 114/55 L O2 Saturation 100 100 Oxygen O2 Source Room air - Labs Labs: Laboratory Tests 10/30/19 10/30/19 10/30/19 02:00 02:00 02:45 WBC 6.9 RBC 4.54 L Hgb 14.3 Hct 42.1 MCV 92.7 MCH 31.5 H MCHC 34.0 RDW 12.7 Plt Count 151 MPV 8.9 Neut # (Auto) 5.2 Lymph # (Auto) 1.0 L [place] # (Auto) 0.5 Eos # (Auto) 0.1 Baso # (Auto) 0.1 Absolute Nucleated RBC 0.00 Nucleated RBC % 0.0 Sodium 136 Potassium 3.7 Chloride 103 Carbon Dioxide 24 Anion Gap 9.0 BUN 18 Creatinine 1.1 Estimated GFR (MDRD) 68 L Glucose 163 H Calcium 8.7 Total Bilirubin 0.7 AST 16 ALT 16 Alkaline Phosphatase 84 Total Protein 7.5 Albumin 4.2 Globulin 3.3 Albumin/Globulin Ratio 1.3 Lipase 26 Urine Color YELLOW Urine Clarity CLEAR Urine pH 8.0 H Ur Specific [place] 1.015 Urine Protein NEGATIVE Urine Glucose (UA) NEGATIVE Urine Ketones 15 H Urine Occult Blood NEGATIVE Urine Nitrite NEGATIVE Urine Bilirubin NEGATIVE Urine Urobilinogen 0.2 (NORMAL) Ur Leukocyte Esterase NEGATIVE Ur Microscopic Review NOT INDICATED Urine Culture Comments NOT INDICATED PD MEDICAL DECISION MAKING - ED course Complexity details: d/w patient, d/w family ED course: Patient presented emergency room with worsening abdominal pain for last 4 hours. There has been a lot of nausea vomitingSince 4 hours ago. initial diagnosis include pancreatitis, diverticulitis, colitis, bowel obstruction, renal calculi, UTI, cystitis. Laboratory results, urinalysis, essentially negative. I am uncertain etiology of this extensive abdominal pain. Patient is reassessed at 305, he still have abdominal discomfort on deep palpation despite 4 mg morphine, 1 mg of Dilaudid, 30 mg of Toradol IV. I am suspecting pancreatitis, ischemic bowel, or bowel obstruction. We will do a CT scan of the abdomen pelvis to rule out those pathology. He understand and agree. CT scan is available at 4:00 in the morning. It shows cholelithiasis without biliary tree obstruction. There is no bowel obstruction. I am uncertain the etiology of this extensive abdominal pain. Patient is so sure. Patient is asked to follow with her primary care doctor for potential GI referral. At that time perhaps upper endoscopy or colonoscopy may be beneficial. He is given prescription of protonix, tramadol and Zofran for symptomatic relief Departure - Departure Disposition: 01 Home, Self Care Clinical Impression: Abdominal pain Qualifiers: Abdominal location: generalized Qualified Code(s): R10.84 - Generalized abdominal pain Gastritis Qualifiers: Gastritis type: unspecified gastritis Chronicity: unspecified Gastritis bleeding: without bleeding Qualified Code(s): K29.70 - Gastritis, unspecified, without bleeding Condition: Stable Instructions: Abdominal Pain, Gastritis Follow-Up: Daly Cameron PA [Primary Care Provider] - Prescriptions: Ondansetron Odt [Zofran] 4 mg TL Q6H PRN #10 tablet PRN Reason: Nausea / Vomiting Pantoprazole Sodium [Protonix] 40 mg PO DAILY #30 granpkt traMADol [Ultram] 50 mg PO Q4-6H #15 tablet Comments: You should follow-up with your primary care doctor in the next 3 to 5 days for GI referral. You may need to have upper endoscopy or colonoscopy to further study your abdominal pain.
[2019-10-30 02:09] LABS: BASOPHILS # (AUTO) 0.1 10^3/uL (0.0-0.1); BASOPHILS % (AUTO) 1.2 %; EOSINOPHILS # (AUTO) 0.1 10^3/uL (0.0-0.7); EOSINOPHILS % (AUTO) 1.7 %; HGB - HEMOGLOBIN 14.3 g/dL (14.0-18.0); LYMPHOCYTES % (AUTO) 14.3 %; MEAN CORPUSCULAR HEMOGLOBIN 31.5 pg (27.0-31.0); MEAN CORPUSCULAR VOLUME 92.7 fL (80.0-94.0); MEAN PLATELET VOLUME 8.9 fL (7.4-11.4); MONOCYTES # (AUTO) 0.5 10^3/uL (0.0-1.0); NEUTROPHILS # (AUTO) 5.2 10^3/uL (1.5-6.6); NEUTROPHILS % (AUTO) 75.5 %; PLT - PLATELET COUNT 151 10^3/uL (130-450); RED BLOOD COUNT 4.54 10^6/uL (4.70-6.10); RED CELL DISTRIBUTION WIDTH 12.7 % (12.0-15.0); WHITE BLOOD COUNT 6.9 x10^3/uL (4.8-10.8)
[2019-10-30] MEDS ORDERED: HYDROmorphone 2 MG/ML VIAL IVP STA (02:10)
[2019-10-30] MEDS ORDERED: HYDROmorphone 1 MG/ML CARPUJECT ONE (02:14)
[2019-10-30 02:21] LABS: ALBUMIN 4.2 g/dL (3.2-5.5); ALBUMIN/GLOBULIN RATIO 1.3 (1.0-2.2); BILIRUBIN,TOTAL 0.7 mg/dL (0.2-1.0); CALCIUM 8.7 mg/dL (8.5-10.3); CREATININE 1.1 mg/dL (0.6-1.2); TOTAL PROTEIN 7.5 g/dL (6.7-8.2)
[2019-10-30] MEDS ORDERED: KETOROLAC 30 MG/ML VIAL IVP STA (02:25)
[2019-10-30] MEDS ORDERED: LORazepam 2 MG/ML VIAL IVP STA (02:25)
[2019-10-30] MEDS ORDERED: KETOROLAC 30 MG/ML VIAL ONE (02:28)
[2019-10-30 02:50] LABS: BILIRUBIN,URINE NEGATIVE (NEGATIVE); GLUCOSE, URINE (UA) NEGATIVE (NEGATIVE); KETONES,URINE (UA) 15 mg/dL (NEGATIVE); LEUKOCYTE ESTERASE, URINE NEGATIVE (NEGATIVE); NITRITE,URINE NEGATIVE (NEGATIVE); OCCULT BLOOD,URINE NEGATIVE (NEGATIVE); PROTEIN,URINE NEGATIVE (NEGATIVE); UROBILINOGEN,URINE 0.2 (NORMAL) E.U./dL (NORMAL)
[2019-10-30 02:51] LABS: CLARITY,URINE CLEAR (CLEAR)
[2019-10-30] MEDS ORDERED: IOVERSOL 320 100 ML VIAL IVP ONE ×2 (03:19→03:45)
--- NOTE | 2019-10-30 04:04 | CT Report ---
Reason: Abdominal pain, fever Procedure Date: 10/30/2019 Accession Number: [id number] / [id number] Procedure: CT - Abdomen/Pelvis W CPT Code: Final Report FULL RESULT: EXAM: CT ABDOMEN AND PELVIS EXAM DATE: 10/30/2019 03:47 AM. CLINICAL HISTORY: Abdominal pain, fever. COMPARISONS: None. TECHNIQUE: Routine helical CT imaging was performed through the abdomen and pelvis. IV contrast: OPTI 320 100ML. Enteric contrast: No. Reconstructions: Coronal and sagittal. In accordance with CT protocol optimization, one or more of the following dose reduction techniques were utilized for this exam: automated exposure control, adjustment of mA and/or KV based on patient size, or use of iterative reconstructive technique. FINDINGS: Lung Bases: Left greater than right basilar airspace disease. Trace left effusion. No pneumothorax. Liver: Normal. No masses. Gallbladder/Bile Ducts: Cholelithiasis. No evident biliary dilatation. Spleen: Normal. Pancreas: Normal. Adrenal Glands: Normal. Kidneys: Normal. No masses or hydronephrosis. Peritoneal Cavity/Bowel: Normal. No free fluid, free air or adenopathy. No masses or acute inflammatory process. The appendix is well visualized and normal. Pelvic Organs: Normal. The bladder and visualized pelvic organs are within normal limits. Vasculature: No aneurysms or other significant abnormality. Bones: No significant abnormality. Other: None. IMPRESSION: Cholelithiasis, without evidence of biliary obstruction. No bowel obstruction or perforation. [facility]
[2019-10-30 04:26] VITALS: BP 133/65
== END 2019-10-30 04:25 | disposition home or self-care (01) ==
LOC: ED 01:50
DX: K29.70 Gastritis, unspecified, without bleeding (principal); K80.20 Calculus of gallbladder without cholecystitis without obstruction; K21.9 Gastro-esophageal reflux disease without esophagitis; F17.200 Nicotine dependence, unspecified, uncomplicated; Z79.82 Long term (current) use of aspirin
CPT/HCPCS: 36415; 74177; 80053; 81003; 83690; 85025; 96361; 96374; 96375; 99284; 99285; J1170; J2060; Q9967; 81001; 87086